=== PATIENT | female | born 1955 | race Caucasian/White ===

== ENCOUNTER 2021-04-24 16:20 | Emergency (ER) | payer BC ==
[~2021-04-24] VITALS: Ht 152.4 cm; Wt 84.1 kg
[2021-04-24 17:03] VITALS: PULSE 101; TEMP 98.1
[2021-04-24] MEDS ORDERED: MOBIC 7.5MG7.5 MG (17:16)
[2021-04-24] MEDS ORDERED: NAPROSYN500 MG PO (18:18)
[2021-04-24 18:30] VITALS: BP 133/93
== END 2021-04-24 18:50 | disposition home or self-care (01) ==
LOC: COL.ER 16:20
DX: M25.562 Pain in left knee (principal)
CPT/HCPCS: J1885